=== PATIENT | male | born 1965 | race Caucasian/White ===

== ENCOUNTER 2023-07-06 07:45 | Emergency (ER) | payer MEDICAID, OTHER ==
[~2023-07-06] VITALS: Ht 172.7 cm; Wt 66.0 kg
[2023-07-06 07:55] VITALS: O2SAT 100
[2023-07-06 08:17] LABS: HEMATOCRIT. 41.8 % (42.0-52.0); HEMOGLOBIN. 14.2 g/dL (14.0-18.0); MEAN CORPUSCULAR HEMOGLOBIN 32.1 pg (28.0-32.0); MEAN CORPUSCULAR VOLUME 94.6 fL (80.0-94.0); PLATELET 182 x1000/uL (130-400); RED BLOOD CELL COUNT 4.42 mill/uL (4.7-6.1); RED CELL DISTRIBUTION WIDTH 12.3 % (11.6-14.6)
[2023-07-06 08:18] LABS: DIFFERENTIAL COMMENT 1
[2023-07-06 08:29] LABS: INR 1.1; PROTHROMBIN TIME 11.3 sec (9.6-11.0)
[2023-07-06 08:32] LABS: CHLORIDE 103 mEq/L (98-107); INDEX HEMOLYSI 1 (1-3); INDEX ICTERIC 1 (1-4); INDEX LIPEMIC 1 (1-3); POTASSIUM 3.8 mEq/L (3.5-5.1); SODIUM 133 mEq/L (136-145)
[2023-07-06 08:43] LABS: ALANINE AMINOTRANSFERASE 20 IU/L (13-61); ALBUMIN 3.6 g/dL (3.4-5.0); ASPARTATE AMINOTRANSFERASE 16 IU/L (15-37); BILIRUBIN TOTAL 1.2 mg/dL (0.1-1.0); CALCIUM 8.5 mg/dL (8.5-10.1); CARBON DIOXIDE 23 mEq/L (21-32); CREATININE 0.8 mg/dL (0.6-1.3); GLUCOSE 113 mg/dL (70-105); PROTEIN TOTAL 7.4 g/dL (6.0-8.3); TROPONIN I HIGH SENSITIVITY 4 ng/L (<78); UREA NITROGEN BLOOD 14 mg/dL (7-21)
[2023-07-06 09:55] LABS: PLATELET ESTIMATE NORMAL
[2023-07-06 10:19] LABS: CLARITY URINE CLEAR (CLEAR); COLOR URINE ORANGE (YELLOW); GLUCOSE URINE NEGATIVE (NEGATIVE); KETONES URINE TRACE (NEGATIVE); LEUKOCYTE ESTERASE URINE TRACE (NEGATIVE); NITRITE URINE POSITIVE (NEGATIVE); OCCULT BLOOD URINE 2+ (NEGATIVE); PH URINE 6.5 (4.5-8.0); PROTEIN URINE 2+ (NEGATIVE)
[2023-07-06 10:34] LABS: MUCUS URINE 3+ /lpf (NONE/TRACE)
[2023-07-06 10:35] LABS: RBC URINE 0-2 /hpf (0-2); SQUAMOUS EPITHELIAL CELL URINE RARE /lpf (RARE/1+); WBC URINE 25-50 /hpf (0-2)
[2023-07-06 10:37] LABS: BACTERIA URINE 2+
[2023-07-06] MEDS ORDERED: LEVO250T74 PO ×2 (13:24)
[2023-07-06] MEDS ORDERED: CEFTRIAXONE 1GM PREMIX 50 ML IV ONE (14:30)
[2023-07-06] MEDS ORDERED: IBUP-1523 MT (18:35)
[2023-07-06] MEDS ORDERED: TOPUD MT (18:35)
[2023-07-06] MEDS ORDERED: CEFD300C3 MT (18:35)
[2023-07-06 19:00] VITALS: BP 120/66; PULSE 77; RESP 18; TEMP 98.9
== END 2023-07-06 19:05 | disposition home or self-care (01) ==
LOC: ER 08:12
DX: N39.0 Urinary tract infection, site not specified (principal)
CPT/HCPCS: 80053; 81003; 83605; 85025; 85610; 87040; 87086; 87186; 84484; 87077; 36415; 84145; 71045; 74176; 93005; 96365; 99285; J0696; Z7610